=== PATIENT | male | born 1980 | race Caucasian/White ===

== ENCOUNTER 2017-07-15 07:18 | Outpatient (RCR) | payer OTHER | END 2017-08-04 | LOC: EDBD → PT 07:18 | PROVIDERS: ATTEND Family Medicine | DX: S39.012A Strain of muscle, fascia and tendon of lower back, initial encounter (principal); M54.16 Radiculopathy, lumbar region; M51.36 Other intervertebral disc degeneration, lumbar region; M41.86 Other forms of scoliosis, lumbar region | CPT/HCPCS: 97139; 97750; G8978; G8979; G8980 ==